=== PATIENT | female | born 2000 | race African-American/Black ===

== ENCOUNTER 2024-11-16 07:53 | Emergency (ER) | payer OTHER, SELFPAY ==
[2024-11-16 07:56] VITALS: BP 118/85; PULSE 98; TEMP 36.8; O2SAT 96; BMI 26.6
[2024-11-16 08:25] LABS: Influenza Virus A Antigen Negative; Influenza Virus B Antigen Negative; Internal Control Within Normal Limits; Respiratory Syncytial Virus Not Detected (NOT DETECTE)
[2024-11-16 08:26] LABS: Internal Control Within Normal Limits; SARS-CoV-2 Ag NEGATIVE (NEGATIVE); Strep A Antigen Screen Negative
[2024-11-16] MEDS: IBUPROFEN 600 MG TABLET PO (08:42)
[2024-11-16 08:43] VITALS: O2SAT 97
--- NOTE | 2024-11-16 10:43 | ED.URI1 ---
HPI - URI/Sore Throat General Chief Complaint: Upper Respiratory Infection Stated Complaint: BODY ACHES CHILLS SORE THROAT Time Seen by Provider: 11/16/24 07:54 Source: patient Limitations: no limitations History of Present Illness HPI Narrative: The patient presented to us with a runny nose coughing generalized body ache and sore throat No difficulty breathing with exposure to anybody with similar symptoms but the patient does work in [employer] and she is exposed to a lot of people No diarrhea no vomiting but the patient mentions sometimes she would be coughing up sputum and she feels that she is going to throw up Related Data Home Medications ?Medication ?Instructions ?Recorded ?Confirmed norethindrone 1 mg-ethinyl 1 tab PO DAILY 11/16/24 11/16/24 estradiol 20 mcg (21)-iron 75 mg (7) tablet (Blisovi Fe 11/16 (28)) Previous Rx's ?Medication ?Instructions ?Recorded ibuprofen 600 mg tablet 600 mg PO TID PRN fever or pain 11/16/24 #20 tabs Allergies Allergy/AdvReac Type Severity Reaction Status Date / Time No Known Drug Allergies Allergy Verified 11/16/24 07:56 Review of Systems ROS Status of ROS 10 or more systems reviewed and unremarkable except as noted in history and below PFSH PFSH Social History Little interest or pleasure in doing things: not at all Feeling down, depressed, or hopeless: not at all Exam Narrative Exam Narrative: Nurses notes and vital signs reviewed and patient is not hypoxic. General: Well-appearing and in no apparent distress. Skin: Warm, dry, no pallor noted. No rash. Head: Normocephalic, atraumatic. Neck: Supple, non-tender. Eye: Pupils are equal, round and EOMI. No scleral icterus. Ears, Nose, Mouth, and Throat: TM are clear, no nasal mucosal hypertrophy. Oral mucosa is moist, no posterior oropharynx erythema, uvula is mid-line Cardiovascular: Regular Rate and Rhythm without murmur, gallop or rub. Respiratory: No accessory muscle use or respiratory distress. Lungs are clear to auscultation, no wheezing, rales or rhonchi Chest Wall: no tenderness Back: No midline thoracic or lumbar vertebral tenderness. No CVA tenderness Musculoskeletal: normal ROM, no calf or popliteal tenderness, no lower extremity edema/swelling GI: Abdomen is soft, non-distended. Normal bowel sounds. No masses appreciated. No tenderness to palpation. No rebound, guarding, or rigidity noted. Neurological: A&O x4. No cranial nerve dysfunction observed. No truncal ataxia. Moves all extremities. Sensation intact. Psychiatric: Cooperative and interactive. Normal mood and affect. Constitutional Vital Signs, click to edit/add: Last Vital Signs Temp 98.3 F 11/16/24 07:56 Pulse 98 H 11/16/24 07:56 Resp 20 11/16/24 07:56 BP 118/85 11/16/24 07:56 Pulse Ox 97 11/16/24 08:43 O2 Del Method Room Air 11/16/24 08:43 Course Vital Signs Vital signs: Vital Signs Temperature 98.3 F 11/16/24 07:56 Pulse Rate 98 H 11/16/24 07:56 Respiratory Rate 20 11/16/24 07:56 Blood Pressure 118/85 11/16/24 07:56 Pulse Oximetry 96 11/16/24 07:56 Temperature 98.3 F 11/16/24 07:56 Pulse Rate 98 H 11/16/24 07:56 Respiratory Rate 20 11/16/24 07:56 Blood Pressure 118/85 11/16/24 07:56 Pulse Oximetry 97 11/16/24 08:43 Oxygen Delivery Method Room Air 11/16/24 08:43 MDM - URI/Sore Throat MDM Narrative Medical decision making narrative: The patient COVID flu and strep test are negative Right now presentation is mostly secondary viral illness she is just continue supportive care with Tylenol and ibuprofen The patient is to follow up with primary care physician in next 2-3 days or to return to the emergency department should any of the signs or symptoms worsen or new symptoms develop. The patient agrees with the following Diagnosis and Treatment plan and the patient will be discharged home. Lab Data Labs: Lab Results 11/16/24 Range/Units 08:01 Influenza Type A Ag Negative Influenza Type B Ag Negative RSV Antigen Not detected (NOT DETECTE) SARS-CoV-2 Ag (CV2AG) Negative (NEGATIVE) Streptococcus Screen Negative Discharge Plan Discharge Chief Complaint: Upper Respiratory Infection Clinical Impression: Acute viral syndrome Patient Disposition: Home, Self-Care Time of Disposition Decision: 08:37 Condition: Good Prescriptions / Home Meds: New ibuprofen 600 mg tablet 600 mg PO TID PRN (Reason: fever or pain) Qty: 20 0RF No Action norethindrone-e.estradiol-iron [Blisovi Fe 11/16 (28)] 1 mg-20 mcg (21)/75 mg (7) tablet 1 tab PO DAILY Print Language: Polish Instructions: Viral Syndrome (ED) Referrals: Physician,Non-Staff, MD [Primary Care Provider] - 1 week Discharge Date/Time: 11/16/24 08:45
== END 2024-11-16 08:45 | disposition home or self-care (01) ==
PROVIDERS: Emergency Provider Emergency Medicine
DX: B34.9 Viral infection, unspecified (principal)
CPT/HCPCS: 87070; 87420; 87804; 87811; 87880; 99283

== ENCOUNTER 2025-07-01 15:05 | Emergency (ER) | payer OTHER, SELFPAY ==
--- OUTSIDE RECORDS SUMMARY | 2024-08-20 05:30 | XMS_ITS ---
Author Organization [facility] Address [address] [place], [place] [id number] Care Team Providers Care Refrigeration Installer Name Role Phone Adán Allen Unavailable [phone] Helen Limon Unavailable [phone] REASON FOR VISIT Recall ()- Social History Sex Assigned At : Social History Observation Description Sex Assigned At Female Encounters Encounter Location Date Provider Diagnosis Dental Main [address] [place], [place] [id number] 08/20/2024 Helen Limon Plan Of Treatment No Information Progress Notes * Peng COVARRUBIASaDOB:[birth year] (24 yo F)Acc No.[id number]:08/20/2024 Patient: Klever JOSE ENRIQUEISHA Leslie Provider: Arthur Limon DDS :2000 A ge:23 Y S ex:Female Date:08/20/2024 Address:[facility] [address], [id number] Subjective: * Chief Complaints: * 1 . Recall ()- . * Medical History: Objective: * Vitals: Assessment: Plan: * Treatment: * Billing Information: * Visit Code: * Procedure Codes: * Electronic signature of Elijah Limon DDS on 07/01/2025 at 04:08 PM EDT Sign off status: Pending * Provider: Arthur Limon DDS Date: 1 Generated for Maya plasencia/Aaliyah/Nurys on: 0 07/01/2025 04:08 PM EDT
--- OUTSIDE RECORDS SUMMARY | 2025-01-18 05:15 | XMS_ITS ---
Author Organization [facility] Address [address] [place] [id number] Care Team Providers Care Solar/Renewable Energy Sales Name Role Phone Allen Mccain [facility] [phone] REASON FOR VISIT Rest # 3-MODL Amalgam Social History Sex Assigned At : Social History Observation Description Sex Assigned At Female Encounters Encounter Location Date Provider Diagnosis Dental Main [address] [place], [place] [phone] 01/18/2025 Allen Mccain Plan Of Treatment No Information Progress Notes * Peng COVARRUBIASaDOB:[birth year] (24 yo F)Acc No.[id number]:01/18/2025 Patient: Davis STACYdonta Provider: Slim Mccain DDS :2000 A ge:24 Y S ex:Female Date:01/18/2025 Address:On license of [facility] [address], [id number] Subjective: * Chief Complaints: * 1 . Rest # 3-MODL Amalgam. * Medical History: Objective: * Vitals: Assessment: Plan: * Treatment: * Billing Information: * Visit Code: * Procedure Codes: * Electronic signature of Olayinka Mccain DDS on 07/01/2025 at 04:08 PM EDT Sign off status: Pending * Provider: Slim Mccain DDS Date: 0 01/18/2025 Generated for Maya plasencai/Aaliyah/Nurys on: 0 07/01/2025 04:08 PM EDT
[2025-07-01] VITALS (16 sets, daily range): BP systolic 127–148; BP diastolic 85–98; PULSE 51–67; TEMP 36.8; O2SAT 99–100; BMI 26.8
--- NOTE | 2025-07-01 15:26 | XR_ITS ---
[facility] [place] [id number] Patient Name: YOLY MUÑOZ MRN: [id number] date: 2000 Sex: F Assigned Patient Location: ED.MAIN Current Patient Location: ED.MAIN Accession/Order Number: [id number] Exam Date: 07/01/2025 16:20 Report Date: 07/01/2025 16:46 At the request of: SUZANNE MENJIVAR DO Procedure: XR chest 2V Plain film chest Single view HISTORY: Chest pain for 2 days COMPARISON: None FINDINGS: SUPPORT DEVICES: None POSTSURGICAL CHANGES: None HEART: Within normal limits PULMONARY TAMI: Within normal limits MEDIASTINUM: Unremarkable LUNGS AND PLEURA: No acute lung process, pleural effusion or pneumothorax identified. BONY STRUCTURES: Intact ADDITIONAL FINDINGS None XR/XR chest 2V IMPRESSION: No acute process. Impression dictated by: Kenney Davis M.D. 07/01/2025 4:46 PM Dictation Location: [facility] Electronically authenticated by: [id number] Y Date: 07/01/2025 16:46
--- NOTE | 2025-07-01 15:26 | ECG_ITS ---
[facility] Test Date: 2025-07-01 Pat Name: YOLY MUÑOZ Department: Room: - Gender: Female Chicken And Fish Cleaner: : 2000 Requested By: [id number] Order Number: [id number] Reading MD: MNIOR VÁSQUEZ Measurements Intervals [place] Rate: 53 P: -45 IA: 146 QRS: 86 QRSD: 76 T: 73 QT: 408 QTc: 392 Interpretive Statements SINUS BRADYCARDIA 9140 abnormal rhythm ECG No previous ECG available for comparison Electronically Signed On 07-01-2025 16:05:50 EDT by MINOR VÁSQUEZ
--- NOTE | 2025-07-01 15:39 | ED_ITS ---
HPI HPI - General Adult General Chief complaint: Chest Pain Stated complaint: CHEST TIGHTNESS SOB Time Seen by Provider: 07/01/25 15:20 Source: patient Mode of arrival: walk-in History of Present Illness HPI narrative: Patient is a healthy 24-year-old female presenting to the emergency department for evaluation of chest pain. Patient states has been somewhat sick, had a few episodes of nausea and vomiting yesterday. She states that after this episode of vomiting, she started having left-sided chest pain. She states the pain is intermittent, and she also feels that she cannot take a deep breath. She is on oral contraceptive pills. She denies history of DVT/PE. Denies any associated exertional symptoms. She states the pain radiates from the left side of her chest to her left side of her back. She denies history of COPD/asthma. She denies any leg swelling. No hemoptysis. No recent surgical procedures or immobilizations. Related Data Home Medications ?Medication ?Instructions ?Recorded ?Confirmed norethindrone 1 mg-ethinyl 1 tab PO DAILY 11/16/24 estradiol 20 mcg (21)-iron 75 mg (7) tablet (Blisovi Fe 11/16 (28)) Previous Rx's ?Medication ?Instructions ?Recorded ibuprofen 600 mg tablet 600 mg PO TID PRN fever or p ain 11/16/24 #20 tabs Allergies Allergy/AdvReac Type Severity Reaction Status Date / Time No Known Drug Allergies Allergy Verified 11/16/24 07:56 Opioid HPI Opioid Management Most Recent Opioid Data: Last Pain Scale 3 11/16/24, 08:42 Review of Systems ROS Status of ROS 10 or more systems reviewed and unremark able except as noted in history and below PFSH PFSH Social History Little interest or pleasure in doing things: not at all Feeling down, depressed, or hopeless: not at all Exam Narrative Exam Narrative: CONSTITUTIONAL: Well-appearing, answering questions and following commands appropriately SKIN: Was warm and dry. EYES: No conjunctival pallor EARS, NOSE, THROAT: No JVD RESPIRATORY: Clear to auscultation bilaterally, no wheezes, crackles, or stridor, no use of accessory muscles CARDIOVASCULAR: Normal rate and regular rhythm. There is no S3, S4, murmur, rub. Radial pulses are 2+ and symmetrical. GASTROINTESTINAL: Abdomen is nondistended MUSCULOSKELETAL: There was no lower extremity edema, erythema, or tenderness. NEUROLOGIC: Patient is awake and alert. Facies were symmetrical. Constitutional Vital Signs, click to edit/add: Last Vital Signs Temp 98.2 F 07/01/25 15:09 Pulse 62 07/01/25 15:09 Resp 18 07/01/25 15:09 BP 148/98 H 07/01/25 15:09 Pulse Ox 100 07/01/25 15:09 O2 Del Method Room Air 07/01/25 15:09 Course Vital Signs Vital signs: Vital Signs Temperature 98.2 F 07/01/25 15:09 Pulse Rate 62 07/01/25 15:09 Respiratory Rate 18 07/01/25 15:09 Blood Pressure 148/98 H 07/01/25 15:09 Pulse Oximetry 100 07/01/25 15:09 Oxygen Delivery Method Room Air 07/01/25 15:09 Temperature 98.2 F 07/01/25 15:09 Pulse Rate 62 07/01/25 15:09 Respiratory Rate 18 07/01/25 15:09 Blood Pressure 148/98 H 07/01/25 15:09 Pulse Oximetry 100 07/01/25 15:09 Oxygen Delivery Method Room Air 07/01/25 15:09 Medical Decision Making MDM Narrative Medical decision making narrative: Patient is a 24-year-old female presenting to the emergency department for left- sided intermittent chest pain beginning after she had a few episodes of vomiting yesterday. Her vital signs are within normal limits. She is afebrile and hemodynamically stable. She has a normal physical examination. Differential diagnose includes Zo-Allen tear, pneumothorax, pneumomediastinum, and less likely PE. Patient is otherwise young, healthy with no cardiac risk factors, low concern for ACS. Laboratory studies were obtained including EKG and two-view chest x-ray. 12 Lead EKG: Sinus bradycardia at a rate of 50. Normal axis. No S1Q3T3. No ST segment el evations. QRS, WA, and QTc interval within normal limits. Final impression: Sinus bradycardia without evidence of acute myocardial ischemia Chest x-ray independently reviewed/interpreted by myself demonstrated no acute cardiopulmonary process. Laboratory studies were unremarkable. No significant electrolyte or metabolic derangement. No evidence of acute kidney injury. No anemia, leukocytosis, or thrombocytopenia. test negative. D-dimer not elevated. On reevaluation, patient states she feels well and feels comfortable being discharged home. I do believe the patient is stable for discharge at this time. Patient's presentation is most likely consistent with atypical chest pain, may be related to recent episode of vomiting. They were instructed to follow up with her PCP if her symptoms persist. Return precautions were given including any new or worsening symptoms. Patient understands and agrees to the plan. FINAL IMPRESSION: #Acute atypical chest pain DISPOSITION: Discharged home CONDITION: Good Lab Data Lab results reviewed: Yes I reviewed the patient's lab results Labs: Lab Results 07/01/25 Range/Units 15:55 WBC 5.5 (4.0-11.0) 10^3/uL RBC 4.61 (4.20-5.40) 10^6/uL Hgb 14.0 (12.0-16.0) g/dL Hct 41.7 (36.0-48.0) % MCV 90.5 (81.0-99.0) fL MCH 30.4 (26.7-34.0) pg MCHC 33.6 (29.9-35.2) g/dL RDW 12.3 (11.0-15.0) % Plt Count 244 (150-450) 10^3/uL MPV 10.5 (9.5-13.5) fL D-Dimer 0.39 (<=0.59) mg/L FEU Sodium 140 (136-145) mmol/L Potassium 3.4 L (3.5-5.1) mmol/L Chloride 101 (98-107) mmol/L Carbon Dioxide 26.8 (21.0-32.0) mmol/L Anion Gap 15.6 BUN 13.0 (7.0-18.0) mg/dL Creatinine 0.92 (0.55-1.02) mg/dL Est GFR ( Amer) >60 (>=60 mL/min/1.73m^2) Est GFR (Non-Af Amer) >60 (>=60 mL/min/1.73m^2) BUN/Creatinine Ratio 14.1 Glucose 80 (74-106) mg/dL Calcium 9.6 (8.5-10.1) mg/dL Serum HCG, Qual Negative (NEGATIVE) Imaging Data Chest x-ray: Attestation: I personally reviewed and interpreted this imaging study as follows: Radiologist's impression: ITS Impressions Chest X-Ray 07/01/25 15:26 IMPRESSION: No acute process. Impression dictated by: Kenney Davis M.D. 07/01/2025 4:46 PM Dictation Location: [place] [address] Electronically authenticated by: [id number] Y Date: 07/01/2025 16:46 ECG Data Attestation: I personally reviewed and interpreted this ECG as follows: Discharge Plan Discharge Chief Complaint: Chest Pain Clinical Impression: Atypical chest pain Patient Disposition: Home, Self-Care Time of Disposition Decision: 16:53 Condition: Good Mode of Transportation: Private Vehicle Prescriptions / Home Meds: No Action norethindrone-e.estradiol-iron [Blisovi Fe 11/16 (28)] 1 mg-20 mcg (21)/75 mg (7) tablet 1 tab PO DAILY ibuprofen 600 mg tablet 600 mg PO TID PRN (Reason: fever or pain) Qty: 20 0RF Print Language: Jordanian Instructions: Noncardiac Chest Pain (ED) Referrals: [facility] [Primary Care Provider, Unknown] - 1 week Discharge Date/Time: 07/01/25 17:01
[2025-07-01 16:05] LABS: Hematocrit 41.7 % (36.0-48.0); Hemoglobin 14.0 g/dL (12.0-16.0); Mean Corpuscular HGB Conc 33.6 g/dL (29.9-35.2); Mean Corpuscular Hemoglobin 30.4 pg (26.7-34.0); Mean Corpuscular Volume 90.5 fL (81.0-99.0); Platelet Count 244 10^3/uL (150-450); Red Blood Count 4.61 10^6/uL (4.20-5.40); White Blood Count 5.5 10^3/uL (4.0-11.0)
--- OUTSIDE RECORDS SUMMARY | 2025-07-01 16:08 | XMS_ITS | Clinical Summary ---
Author Organization [facility] Address [address] [place] [address] Care Team Providers Care Metal Template Maker Name Role Phone Tatiana Rutledge Unavailable Allergies No known active allergies Medications terbinafine (LamISIL) 250 MG tabletIndications: Tinea manus Take 1 tablet, by mouth, once daily x 14 days 14 tablet 4 Active fluocinonide (Lidex) 0.05 % ointmentIndication s:Other atopic dermatitis Apply to affected areas on the hands, twice a day when flared, do not use one the face, groin, or underarms, 30 day supply 60 g 3 4 Active norethindrone-ethi nyl estradiol (11/16) 1-20 MG-MCG tabletIndications: Encounter for surveillance of contraceptive pills Take 1 tablet by mouth Daily 28 tablet 12 5 11/26/19 26 Active Active Problems No known active problems Social History Tobacco Use Types Packs/Day Years Used Date Smoking Tobacco: Never Smokeless Tobacco: Never Tobacco Cessation:Counseling Given: Not Answered Alcohol Use Standard Drinks/Week Comments Never 0 (1 standard drink = 0.6 oz pur e alcohol) Comments Unknown Sex and Gender Information Value Date Recorded Sex Assigned at Female 06/13/2023 8:42 AM EDT Legal Sex Female 11:47 PM EDT Gender Identity Female 06/13/2023 8:42 AM EDT Sexual Orientation Not on file Last Filed Vital Signs Vital Sign Reading Time Taken Comments Blood Pressure 108/70 07/16/2023 10:59 AM EDT Pulse - - Temperature - - Respiratory Rate - - Oxygen Saturation - - Inhaled Oxygen Concentration - - Weight 87.5 kg (193 lb) 07/16/2023 10:59 AM EDT Height 172.7 cm (5' 8 ) 11/20/2022 12:00 PM EST Body Mass Index 29.35 11/20/2022 12:00 PM EST Plan of Treatment Health Maintenance Due Date Last Done Comments Influenza Vaccine (#1) 2025 [place] [address] [employer] [facility] Care Teams Metal Template Maker Relationship Specialty Start Date End Date Tatiana Rutledge PA [address] [place] [address] [place] [address] PCP - [facility] 01/27/24
--- OUTSIDE RECORDS SUMMARY | 2025-07-01 16:08 | XMS_ITS | Clinical Summary ---
Author Organization [facility] Address [address], [address] [place] [address] Care Team Providers Care Cotton Stripper Name Role Phone Unavailable Primary Care Provider Unavailabl e Medications montelukast (SINGULAIR) 10 MG tablet take 1 tablet once daily 30 tablet 3 10/18/2014 Active Social History Tobacco Use Types Packs/Day Years Used Date Smoking Tobacco: Never Assessed Comments Unknown Sex and Gender Information Value Date Recorded Sex Assigned at Not on file Legal Sex Female 2:25 PM EDT Gender Identity Not on file Sexual Orientation Not on file Plan of Treatment Not on file
--- OUTSIDE RECORDS SUMMARY | 2025-07-01 16:08 | XMS_ITS | Encounter Summary ---
Author Organization [facility] Address [address], [address] [place] [address] Care Team Providers Care Ui Ux Engineer Name Role Phone Unavailable Primary Care Provider Unavailabl e Reason for Visit * Reason Comments Other Encounter Details Date Type Department Care Team (Late st Contact Info) Description 10/18/2014 Refill [facility] [address] [facility] [address] [place] [address] Jorge Garcia MD [address] [place], [place] [phone] Other Social History Tobacco Use Types Packs/Day Years Used Date Smoking Tobacco: Never Assessed Comments Unknown Sex and Gender Information Value Date Recorded Sex Assigned at Not on file Legal Sex Female 2:25 PM EDT Gender Identity Not on file Sexual Orientation Not on file documented as of this encounter Plan of Treatment Not on file documented as of this encounter Visit Diagnoses Not on filedocumented in this encounter
--- OUTSIDE RECORDS SUMMARY | 2025-07-01 16:08 | XMS_ITS | Clinical Summary ---
Author Organization [facility] Address [id number] [address] [place] [address] Care Team Providers Care Land Management Forester Name Role Phone Services, [facility] Primary Care Provider Allergies No known active allergies Medications acetaminophen (TYLENOL EXTRA STRENGTH) 500 mg tablet Take 1 tablet (500 mg total) by mouth every 6 (six) hours as needed for pain. 30 tablet 11/14/2022 Active ibuprofen (MOTRIN) 800 mg tablet Take 1 tablet (800 mg total) by mouth every 6 (six) hours as needed for pain. 30 tablet 01/15/2024 Active Active Problems No known active problems Social History Tobacco Use Types Packs/Day Years Used Date Smoking Tobacco: Former Cigars Smokeless Tobacco: Never Alcohol Use Standard Drinks/Week Comments No 0 (1 standard drink = 0.6 oz pur e alcohol) Childcare Answer Date Recorded Childcare Unknown 04/08/2019 Employment Answer Date Recorded Employment Unknown 04/08/2019 Purpose - Life Answer Date Recorded Purpose and direction in life Unknown Comments No Sex and Gender Information Value Date Recorded Sex Assigned at Not on file Legal Sex Female 11:55 AM EDT Gender Identity Not on file Sexual Orientation Not on file Last Filed Vital Signs Vital Sign Reading Time Taken Comments Blood Pressure 133/82 01/15/2024 9:07 PM EDT Pulse 62 01/15/2024 9:07 PM EDT Temperature 36.7 C (98.1 F) 01/15/2024 9:07 PM EDT Respiratory Rate 18 01/15/2024 9:07 PM EDT Oxygen Saturation 96% 01/15/2024 9:07 PM EDT Inhaled Oxygen Concentration - - Weight 83 kg (183 lb) 01/15/2024 7:59 PM EDT Height 172.7 cm (5' 8 ) 01/15/2024 7:59 PM EDT Body Mass Index 27.83 01/15/2024 7:59 PM EDT Plan of Treatment Health Maintenance Due Date Last Done Comments Depression Screening 2010 Pap Smear 2019 DTaP,Tdap and Td Vaccines (7 - Td or Tdap) 06/20/2021 06/20/2011, 06/22/2003, 04/09/2000, Additional history exists Adult BMI Screening 01/14/2025 01/15/2024 Tobacco Screening 01/14/2025 01/15/2024 Influenza Vaccine 06/28/2025 Medical Devices Not on file Insurance [employer] [facility] Care Teams Land Management Forester Relationship Specialty Start Date End Date Services, [facility] [address] [place] PCP - General Family Medicine 01/15/24
--- OUTSIDE RECORDS SUMMARY | 2025-07-01 16:09 | XMS_ITS | Encounter Summary ---
Author Organization [facility] Address [address] [place] [address] Care Team Providers Care Healthcare Administrative Assistant Name Role Phone Alexa Hunt GUARD RAIL INSTALLER Unavailable [phone] Tatiana Rutledge Unavailable Encounter Details Date Type Department Care Team (Late st Contact Info) Description 06/12/2023 Abstract [facility] [address] [place] [id number] Tatiana Rutledge PA [address] [place], [facility] Social History Tobacco Use Types Packs/Day Years Used Date Smoking Tobacco: Never Tobacco Cessation:Counseling Given: Not Answered Alcohol Use Standard Drinks/Week Comments Never 0 (1 standard drink = 0.6 oz pur e alcohol) Comments Unknown Sex and Gender Information Value Date Recorded Sex Assigned at Female 06/13/2023 8:42 AM EDT Legal Sex Female 11:47 PM EDT Gender Identity Female 06/13/2023 8:42 AM EDT Sexual Orientation Not on file COVID-19 Exposure Response Date Recorded In the last 10 days, have yo u been in contact with someone who was confirmed or suspected to have Coronavirus/COVID-19? No / Unsure 06/13/2023 8:48 AM EDT documented as of this encounter Plan of Treatment Not on file documented as of this encounter Visit Diagnoses Not on filedocumented in this encounter Care Teams Healthcare Administrative Assistant Relationship Specialty Start Date End Date Alexa uHnt NP [address] [place] [address] [facility] 04/27/23 Tatiana Rutledge PA [address] [place] [address] [place] [address] [facility] 01/27/24 documented as of this encounter
[2025-07-01 16:19] LABS: Anion Gap 15.6; Blood Urea Nitrogen 13.0 mg/dL (7.0-18.0); Calcium 9.6 mg/dL (8.5-10.1); Carbon Dioxide 26.8 mmol/L (21.0-32.0); Chloride 101 mmol/L (98-107); Estimated GFR (African America >60 (>=60 mL/min/1.73m^2); Estimated GFR (Non-African Ame >60 (>=60 mL/min/1.73m^2); Glucose 80 mg/dL (74-106); Potassium 3.4 mmol/L (3.5-5.1); Sodium 140 mmol/L (136-145)
== END 2025-07-01 17:01 | disposition home or self-care (01) ==
PROVIDERS: Emergency Provider Student in an Organized Health Care Education/Training Program
DX: R07.89 Other chest pain (principal)
CPT/HCPCS: 36415; 71046; 80048; 84703; 85027; 85378; 93005; 99285